=== PATIENT | female | born 1990 | race Caucasian/White ===

== ENCOUNTER 2017-11-01 19:07 | Emergency (ER) | payer OTHER ==
[~2017-11-01] VITALS: Ht 165.1 cm; Wt 86.0 kg
[~2017-11-01 19:07] MED LIST: NOCURR
[2017-11-01 19:17] VITALS: BP 156/93
== END 2017-11-01 20:10 | disposition left against medical advice (07) ==
LOC: EMS 19:08
DX: Z53.21 Procedure and treatment not carried out due to patient leaving prior to being seen by health care provider (principal)